=== PATIENT | male | born 1955 | race Caucasian/White ===

== ENCOUNTER 2018-10-20 01:13 | Emergency (ER) | payer OTHER, MEDICAID ==
[~2018-10-20] VITALS: Ht 165.1 cm; Wt 94.8 kg
[2018-10-20 01:21] VITALS: Ht 165.1 cm; Wt 94.8 kg
[2018-10-20 02:38] VITALS: BP 137/79
== END 2018-10-20 02:38 | disposition home or self-care (01) ==
LOC: ED 01:13
DX: J40 Bronchitis, not specified as acute or chronic (principal); J02.9 Acute pharyngitis, unspecified; I10 Essential (primary) hypertension
CPT/HCPCS: J7512; J7620